=== PATIENT | female | born 1980 | race Caucasian/White ===

== ENCOUNTER 2018-04-27 15:45 | Outpatient (CLI) | payer OTHER ==
--- NOTE | 2018-04-27 17:25 | Non Stress Test Report ---
Non Stress Test Datetime Report Generated by CPN: 04/27/2018 17:24 INDICATION Indication for Study: Ordered by Provider Indication for Study (NST) Other: repeat from the office MONITORING Monitor Explained: Monitor Explained; Test Explained; Patient Verbalized Understanding Time on Monitor: 04/27/2018 16:08 Time off Monitor: 04/27/2018 16:50 NST Duration: 42 NST INTERVENTIONS NST Interventions: PO Hydration; Reposition Patient Physician Notified NST: Dr. Francois BABY A: [id number] BABY A Movement : Present Contraction Frequency : irreg FHR Baseline : 115 Accelerations : 15X15 Decelerations : None Variability : Moderate 6-25bpm NST Review: Meets Criteria for Reactive NST NST Review and Verified By : Geraldine De La Cruz RN NST Results: Reactive NST REPORT Report Trigger: Send Report
== END 2018-04-27 17:05 | disposition home or self-care (01) ==
LOC: LC 15:45
PROVIDERS: ATTEND Obstetrics & Gynecology
PROC: 4A1HXCZ Monitoring of Products of Conception, Cardiac Rate, External Approach (ICD-10-PCS; principal; 2018-04-27)
DX: O47.1 False labor at or after 37 completed weeks of gestation (principal); Z3A.37 37 weeks gestation of pregnancy
CPT/HCPCS: 59025

== ENCOUNTER 2018-05-07 06:31 | Inpatient (IN) | payer OTHER ==
[2018-05-07 07:38] LABS: ABSOLUTE LYMPHOCYTES (AUTO) 1.3 10^3/uL (0.5-4.7); ABSOLUTE MONOCYTES (AUTO) 0.4 10^3/uL (0.1-1.4); ABSOLUTE NEUT (AUTO) 4.9 10^3/uL (1.7-8.2); BASOPHILS % (AUTO) 0.2 % (0-2); EOSINOPHILS % (AUTO) 0.5 % (0-6); HEMATOCRIT 38.3 % (36.0-47.0); HEMOGLOBIN 13.3 g/dL (12.0-15.5); LYMPHOCYTES % (AUTO) 19.5 % (13-45); MEAN CORPUSCULAR HEMOGLOBIN 33.1 pg (27.0-33.4); MEAN CORPUSCULAR HGB CONC 34.8 g/dL (32.0-36.0); MEAN CORPUSCULAR VOLUME 95 fl (80-97); MONOCYTES % (AUTO) 5.8 % (3-13); PLATELET COUNT 103 10^3/uL (150-450); RED BLOOD COUNT 4.03 10^6/uL (3.72-5.28); RED CELL DISTRIBUTION WIDTH 12.7 % (11.5-14.0); TOTAL CELLS COUNTED % (AUTO) 100 %; WHITE BLOOD COUNT 6.6 10^3/uL (4.0-10.5)
[2018-05-07] MEDS ORDERED: OXYTOCIN/NORMAL SALINE 20 UNIT/1,000 ML RTUINJ ONE (07:44)
[2018-05-07] MEDS ORDERED: LIDOCAINE 1% INJ-PF (10 MG/ML) 30 ML SDV ONE (07:44)
[2018-05-07] MEDS ORDERED: MISOPROSTOL 0.2 MG TABLET ONE (07:44)
[2018-05-07 07:45] LABS: APPEARANCE,URINE CLOUDY; BILIRUBIN,URINE NEGATIVE (NEGATIVE); COLOR,URINE YELLOW; GLUCOSE, URINE NEGATIVE (NEGATIVE); KETONES,URINE NEGATIVE (NEGATIVE); LEUKOCYTE ESTERASE,URINE MODERATE (NEGATIVE); NITRITE,URINE NEGATIVE (NEGATIVE); PROTEIN,URINE NEGATIVE (NEGATIVE); URINE SPECIFIC GRAVITY 1.017; UROBILINOGEN,URINE NEGATIVE mg/dL (<2.0)
[2018-05-07] MEDS ORDERED: OXYTOCIN/NORMAL SALINE 20 UNIT/1,000 ML RTUINJ IV PRN ×4 (07:45→16:51)
[2018-05-07] MEDS: RINGERS SOLUTION,LACTATED 1,000 ML IV PRN ×2 (07:59→08:28)
[2018-05-07 08:05] LABS: URINE BENZODIAZEPINES SCREEN NEGATIVE
[2018-05-07 08:19] LABS: URINE AMPHETAMINES SCREEN NEGATIVE; URINE BARBITURATES SCREEN NEGATIVE; URINE COCAINE SCREEN NEGATIVE; URINE MARIJUANA (THC) SCREEN NEGATIVE; URINE METHADONE SCREEN NEGATIVE; URINE PHENCYCLIDINE SCREEN NEGATIVE
--- NOTE | 2018-05-07 08:53 | Admission Physical ---
Datetime Report Generated by CPN: 05/07/2018 08:53 CURRENT ADMISSION Hx Assessment: The History has been Reviewed and is Current Chief Complaint: Scheduled Induction of Labor Indication for Induction: Polyhydramnios Admit Impression : Term, Intrauterine ; Induction of Labor Admit Plan: Admit to Unit; Initiate Labor Induction Protocol ALLERGIES Medication Allergies: No Medication Allergies: No Known Allergies (04/27/2018) Latex: No Latex Allergies Food Allergies: none Environmental Allergies: none OBSTETRICAL HISTORY EDC: 05/14/2018 00:00 : 2 Para: 1 Term: 1 : 0 SAB: 0 IAB: 0 Ectopic: 0 Livin Cesareans: 0 VBACs: 0 Multiple Births: 0 Gestational Diabetes: No Rh Sensitization: No Incompetent Cervix: No ODALIS: No Infertility: No ART Treatment: No Uterine Anomaly: No IUGR: No Hx Previous C/S: No Macrosomia: No Hx Loss/Stillborn: No PIH: No Hx : No Placenta Previa/Abruption: No Depression/PP Depression: No PTL/PROM: No Post Hemorrhage: No Current Procedures: Ultrasound; NST Obstetrical History Comments: 2008 40+ 8 lb 9 oz G2 - current poly, AMA SEE RECORDS Alcohol: No Marijuana : No Cocaine: No Other Illicit Drugs: No Cigarettes: Never Smoker. 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 Surgery: No Heart Disease: No Hosp/Surgery: Yes Autoimmune Disorder: No Anesthetic Complications: No Kidney Disease: No Abnormal Pap Smear: No Neuro/Epilepsy: No Psychiatric Disorders: Yes Other Medical Diseases: No Hepatitis/Liver Disease: No Significant Family History: No Varicosities/Phlebitis: No Trauma/Violence : No Thyroid Dysfunction: No Medical History Comments: childbirth, anxiety, depression- on zoloft INFECTIOUS HISTORY Gonorrhea: No Genital Herpes: No Chlamydia: No Tuberculosis: No Syphilis: No Hepatitis: No HIV/AIDS Exposure: No Rash or Viral Illness: No HPV: No PHYSICAL EXAM General: Normal HEENT: Deferred Neurologic: Normal Thyroid: Normal Heart: Normal Lungs: Normal Breast: Deferred Back: Normal Abdomen: Normal Genitourinary Exam: Normal Extremities: Normal DTRs: Normal Pelvic Type: Adequate Physical Exam Comments: Pelvis proven 8-9 Poly @ 37 weeks AMA Anxiety, Zoloft 50, weaning since 03-26-18 A+ GBS Neg 3 hour WNL Vital Signs: Reviewed FETUS A EGA: 39.0 Monitoring: External US FHR- Baseline: 130 Variability: Moderate 6-25bpm Accelerations: 15X15 Presentation: Vertex Admit Comment: Admitted to LD for IOL , AMA, Poly, sono = vtx, Cat 1 strip, irreg uc's Plans for epidural Discussed POC PLANS FOR LABOR AND DELIVERY Labor and Delivery: None Pain Management: Epidural Feeding Preference: Formula Benefit of Breast Feed Discussed: Yes Circumcision: N/A INFORMED CONSENT Assignment: Gabrielle Francois MD Signature: with User ID: [email or web address] : with User ID: [email or web address]
[2018-05-07 10:58] LABS: ABSOLUTE LYMPHOCYTES (AUTO) 1.2 10^3/uL (0.5-4.7); ABSOLUTE MONOCYTES (AUTO) 0.5 10^3/uL (0.1-1.4); BASOPHILS % (AUTO) 0.2 % (0-2); EOSINOPHILS % (AUTO) 0.4 % (0-6); HEMATOCRIT 37.6 % (36.0-47.0); LYMPHOCYTES % (AUTO) 17.6 % (13-45); MEAN CORPUSCULAR HEMOGLOBIN 33.1 pg (27.0-33.4); MEAN CORPUSCULAR HGB CONC 34.6 g/dL (32.0-36.0); MEAN CORPUSCULAR VOLUME 96 fl (80-97); PLATELET COUNT 101 10^3/uL (150-450); RED BLOOD COUNT 3.93 10^6/uL (3.72-5.28); RED CELL DISTRIBUTION WIDTH 12.7 % (11.5-14.0); SEGMENTED NEUTROPHILS % (AUTO) 74.8 % (42-78); TOTAL CELLS COUNTED % (AUTO) 100 %; WHITE BLOOD COUNT 6.7 10^3/uL (4.0-10.5)
[2018-05-07] MEDS ORDERED: EPHEDRINE SULFATE INJ 50 MG/1 ML AMPULE ONE (11:28)
[2018-05-07] MEDS ORDERED: BUPIVACAINE HCL 0.5 % INJ/PF 30 ML SDV ONE (11:29)
[2018-05-07] MEDS ORDERED: FENTANYL/BUPIVACAINE/NS/PF 300 MCG/150 ML RTUINJ EPI ONE (11:29)
--- NOTE | 2018-05-07 13:47 | L&D Progress Notes ---
PROGRESS NOTES Datetime Report Generated by CPN: 05/07/2018 13:47 PROGRESS NOTE Impression: Reassuring Heart Rate Procedures: Artificial ROM; Scalp Electrode Plan: Continue Present Management; Induction Informed Consent Obtained: Vaginal Delivery Vital Signs : Reviewed; Within Normal Limits Comment: comfortable with epidural, VE 4/80/vtx/-1 to 0 AROM with scalp electrode, large amount of clear fluid, uc's q 2-3 min x 60 sec Anticipate MEMBRANES Membranes: Ruptured Amniotic Fluid Color: Clear FETUS A Monitoring: External US : 39.1 Presentation: Vertex SIGNATURE SIGNATURE: ,[id number];,[id number] SIGNATURE: [id number] SIGNATURE: [id number] Assignment: Gabrielle Francois MD Signature: with User ID: [email or web address] : with User ID: [email or web address]
[2018-05-07] MEDS ORDERED: ACETAMINOPHEN WITH CODEINE #3 TABLET PO PRN ×2 (16:51)
[2018-05-07] MEDS ORDERED: DIPH/PERTUSS(ACELL)/TETANUS VAC/PF 0.5 ML SYR (>=10YO) IM PRN (16:51)
[2018-05-07] MEDS ORDERED: DIBUCAINE 1% OINTMENT 28 GM TP PRN (16:51)
[2018-05-07] MEDS ORDERED: MEASLES,MUMPS&RUBELLA VACC/PF 0.5 ML VIAL SUBCUT PRN (16:51)
[2018-05-07] MEDS ORDERED: BENZOCAINE/MENTHOL AEROSOL SPRAY 56 ML TOP PRN (16:51)
[2018-05-07] MEDS ORDERED: PROMETHAZINE HCL INJ 25 MG/1 ML VIAL IV PRN (16:51)
[2018-05-07] MEDS ORDERED: PSEUDOEPHEDRINE HCL 30 MG TABLET PO PRN (16:51)
[2018-05-07] MEDS ORDERED: GLYCERIN/WITCH HAZEL LEAF 1 EACH MED..PAD TP PRN (16:51)
[2018-05-07] MEDS ORDERED: PROMETHAZINE HCL 25 MG TABLET PO PRN (16:51)
[2018-05-07] MEDS ORDERED: NA PHOS,M-B/NA PHOS,DI-BA (ADULT) 133 ML ENEMA PR PRN (16:51)
[2018-05-07] MEDS ORDERED: ACETAMINOPHEN 650 MG SUPP.RECT PR PRN (16:51)
[2018-05-07] MEDS ORDERED: MAGNESIUM HYDROXIDE SUSP 30 ML UDCUP PO PRN (16:51)
[2018-05-07] MEDS ORDERED: PROMETHAZINE HCL 25 MG SUPP.RECT PR PRN (16:51)
[2018-05-07] MEDS ORDERED: DIPHENHYDRAMINE HCL 25 MG CAPSULE PO PRN (16:51)
--- NOTE | 2018-05-07 19:30 | Warning Signs in Babies ---
VOD Warning Signs Datetime Report Generated by [facility]: 05/07/2018 19:30 VOD#608 -Warning Signs in Babies: Needs to be viewed. (04/27/2018 17:29:Merrai Nazario RN)
--- NOTE | 2018-05-07 19:30 | Delivery Summary ---
Del Sum A-C Datetime Report Generated by CPN: 05/07/2018 19:30 DELIVERY PERSONNEL DELIVERY PERSONNEL: [id number] Delivery Doctor:: Brenda Scott CNM Labor and Delivery Nurse:: Amanda Bernal RN Nursery Nurse:: Shilpa Toledo RN Nursery Nurse:: Ailin Lawson RN Laser Beam Cutter/BRANCH LENDING OFFICER: Jeannette Cervantes CST Additional Personnel: : Alejandra Buckner RN MATERNAL INFORMATION Delivery Anesthesia: Epidural Medications After Delivery: Pitocin Bolus-Please Comment Meds After Delivery Comment: Pitocin 20 units in 1L NS bolusing per order Maternal Complications: None Provider Comments: pt pushed, viable female form OC to FABY, loose nuchal cord x 1, easily reduced, placed on mothers abd, cord clamped and cut after 2 min, stimulated, coed cut by hsb. Spont del of grossly nl intact placenta, 3 VC, lac repaired without difficulty, baby to nursery for evaluation, FOB with baby, FFFM, Pitocin infusing, uterine massage LABOR SUMMARY EDC: 05/14/2018 00:00 No. Babies in Womb: 1 Attempted: No Labor Anesthesia: Epidural LABOR INFORMATION Reason for Induction: Polyhydramnios Onset of Labor: 05/07/2018 08:00 Complete Dilatation: 05/07/2018 15:57 Oxytocin: Induction Group B Beta Strep: negative Antibiotics # of Doses: 0 Steroids Given: None Reason Steroids Not Administered: Not Applicable MEMBRANES Membranes Rupture Method: Artificial Rupture of Membranes: 05/07/2018 13:13 Length of Rupture (hr): 3.27 Amniotic Fluid Color: Clear Amniotic Fluid Amount: Large Amniotic Fluid Odor: Normal STAGES OF LABOR Stage 1 hr: 7 Stage 1 min: 57 Stage 2 hr: 0 Stage 2 min: 32 Stage 3 hr: 0 Stage 3 min: 4 Total Time in Labor hr: 8 Total Time in Labor min: 33 VAGINAL DELIVERY Episiotomy: None Laceration #1: Vaginal Laceration Extension #1: Second Degree Laceration Repair: Yes Laceration Repair Note: 2-0 chromic repaired without difficulty Sponge Count Correct: N/A Sharps Count Correct: N/A CSECTION DELIVERY Primary Indication: N/A Secondary Indication: N/A CSection Incidence: N/A Labor: N/A Elective: N/A CSection Incision: N/A BABY A INFORMATION Delivery Date/Time: 05/07/2018 16:29 Method of Delivery: Vaginal Born in Route : No : N/A Forceps: N/A Vacuum Extraction: N/A Shoulder Dystocia : No PRESENTATION/POSITION BABY A Presentation: Cephalic Cephalic Presentation: Vertex Vertex Position: Left Occipital Anterior Breech Presentation: N/A PLACENTA INFORMATION BABY A Placenta Delivery Time : 05/07/2018 16:33 Placenta Method of Delivery: Spontaneous Placenta Status: Delivered SCORES BABY A Heart Rate 1 min: >100 bpm Resp Effort 1 min: Good Cry Reflex Irritability 1 min: Cough or Sneeze or Pulls Away Muscle Tone 1 min: Active Motion Color 1 min: Blue/Pale SCORE 1 MIN: 8 Heart Rate 5 min: >100 bpm Resp Effort 5 min: Good Cry Reflex Irritability 5 min: Cough or Sneeze or Pulls Away Muscle Tone 5 min: Active Motion Color 5 min: Blue/Pale SCORE 5 MIN: 8 INFORMATION BABY A Gestational Age at Delivery: 39.0 Gestational Status: Full Term- 39- 40.6 Weeks Outcome : Liveborn Infant Condition : Stable Sex: Female IDENTIFICATION BABY A Infant Verification Date/Time: 05/07/2018 17:06 ID Band Number: [id number] Mother's Name Verified: Yes Infant RN Verifying : C. Dolores, RN and E. [place] RN WEIGHT/LENGTH BABY A Infant Birthweight (gm): 3330 Weight (lb): 7 Weight (oz): 5 Length (in): 20.00 Length (cm): 50.80 CORD INFORMATION BABY A No. Cord Vessels: 3 Nuchal Cord : Around Neck x1, Loose Cord Blood Taken: Yes-For Storage (Mom's Blood type +) Suction: None ASSESSMENT BABY A Complications: Extended Bradycardia; Polyhydramnios Skin to Skin: No Desktop Support Technician/ALS Called : No Care By: Leann Michel RN Transferred To: NICU BABY B INFORMATION : N/A
[2018-05-07] MEDS ORDERED: IBUPROFEN 800 MG TABLET ONE (19:34)
[2018-05-07] MEDS: IBUPROFEN 800 MG TABLET PO SCH (21:00)
[2018-05-07] MEDS: FAMOTIDINE 20 MG TABLET PO SCH (22:11)
[2018-05-08] MEDS: IBUPROFEN 800 MG TABLET PO SCH (05:31)
[2018-05-08 06:57] LABS: HEMOGLOBIN 12.3 g/dL (12.0-15.5); MEAN CORPUSCULAR HEMOGLOBIN 33.5 pg (27.0-33.4); MEAN CORPUSCULAR HGB CONC 35.1 g/dL (32.0-36.0); MEAN CORPUSCULAR VOLUME 95 fl (80-97); RED BLOOD COUNT 3.66 10^6/uL (3.72-5.28); RED CELL DISTRIBUTION WIDTH 12.8 % (11.5-14.0); WHITE BLOOD COUNT 11.4 10^3/uL (4.0-10.5)
[2018-05-08 07:42] LABS: PLATELET COUNT 91 10^3/uL (150-450)
[2018-05-08] MEDS: DOCUSATE SODIUM 100 MG CAPSULE PO SCH ×3 (10:06→18:10)
[2018-05-08] MEDS: FERROUS SULFATE 325 MG TABLET PO SCH ×3 (10:06→18:10)
[2018-05-08] MEDS: SENNOSIDES/DOCUSATE 8.6-50 MG 1 EACH TABLET PO SCH (10:10)
[2018-05-08] MEDS: PRENATAL VITAMIN W DHA CAPSULE PO SCH (10:10)
[2018-05-08] MEDS: FAMOTIDINE 20 MG TABLET PO SCH ×2 (10:11→22:41)
[2018-05-08] MEDS: ACETAMINOPHEN 325 MG TABLET PO PRN (13:40)
--- NOTE | 2018-05-08 13:51 | PDOC PROGRESS REPORT ---
Subjective-OB Progress Note for:: 05/08/18 Subjective: reports bleeding showing, pain controlled with current meds, denies needs Physical Exam (OB) Vital Signs: Temp Pulse Resp BP Pulse Ox 97.5 F 87 16 100/58 L 100 05/08/18 07:39 05/08/18 07:39 05/08/18 07:39 05/08/18 07:39 05/08/18 07:39 Intake & Output 05/07/18 05/08/18 05/09/18 06:59 06:59 06:59 Intake Total 2360 Balance 2360 Weight 88.1 kg - Abdomen Description: Soft, Flat Hernia Present: No Fundal Description: Firm, Midline Fundal Height: u/u - u/2 - Abdominal Distension: No distension Tenderness: Nontender - Extremities Lower extremities: Marlyn's sign - neg Calf: Normal, Nontender Objective-Diagnostic Laboratory: 05/08/18 06:34 05/08/18 06:34 WBC 11.4 H RBC 3.66 L Hgb 12.3 Hct 35.0 L MCV 95 MCH 33.5 H MCHC 35.1 RDW 12.8 Plt Count 91 L Assessment and Plan(PN) - Assessment and Plan (1) Normal vaginal delivery Is this a current diagnosis for this admission?: Yes (2) Thrombocytopenia Is this a current diagnosis for this admission?: Yes - Time Spent with Patient Time with patient: Less than 15 minutes Medications reviewed and adjusted accordingly: Yes - Disposition Anticipated Discharge: Home Within: within 24 hours
[2018-05-09 08:06] VITALS: BP 118/75
--- NOTE | 2018-05-09 10:51 | PDOC DISCHARGE SUMMARY ---
Final Diagnosis Discharge Date: 05/09/18 - PP#2, doing well, hx of thrombocytopenia this pergnancy, no complaints, Bottle feeding, A+, rubella immune - Final Diagnosis (1) Normal course Is this a current diagnosis for this admission?: Yes (2) Normal vaginal delivery Is this a current diagnosis for this admission?: Yes (3) Thrombocytopenia Is this a current diagnosis for this admission?: Yes Discharge Data - Discharge Medication Home Medications: [id number]/Iron/Folic/Dha [ Formula-Dha Softgel] 1 cap PO DAILY 08/13 Sertraline HCl [Zoloft 50 mg Tablet] 50 mg PO DAILY 04/27/18 Acetaminophen [Tylenol 325 mg Tablet] 975 mg PO Q6HP PRN tablet 05/09/18 Reason(s) for Admission: Onset of Labor Procedures: Ultrasound Intrapartum Procedure(s): Spontaneous Vaginal Delivery Complication(s): Laceration-Perineal Laceration-Degree: 2nd - Diagnosis Test Laboratory: Temp Pulse Resp BP Pulse Ox 97.8 F 69 16 118/75 99 05/09/18 07:36 05/09/18 07:36 05/09/18 07:36 05/09/18 07:36 05/09/18 07:36 05/07/18 05/07/18 05/07/18 06:43 07:00 10:44 RBC 4.03 3.93 Hgb 13.3 13.0 Hct 38.3 37.6 Urine Opiates Screen NEGATIVE 05/08/18 06:34 RBC 3.66 L Hgb 12.3 Hct 35.0 L Urine Opiates Screen - Discharge information/Instructions Discharge Activity: Activity As Tolerated, No Lifting Over 10 Pounds, Pelvic Rest Discharge Diet: As Tolerated, Regular Disposition: HOME, SELF-CARE Follow up with: [facility] in: 2, Weeks - check [place] level
[2018-05-09] MEDS: SENNOSIDES/DOCUSATE 8.6-50 MG 1 EACH TABLET PO SCH (11:07)
[2018-05-09] MEDS: FERROUS SULFATE 325 MG TABLET PO SCH (11:07)
[2018-05-09] MEDS: FAMOTIDINE 20 MG TABLET PO SCH (11:07)
[2018-05-09] MEDS: DOCUSATE SODIUM 100 MG CAPSULE PO SCH (11:07)
[2018-05-09] MEDS: PRENATAL VITAMIN W DHA CAPSULE PO SCH (11:07)
[2018-05-09] MEDS: ACETAMINOPHEN 325 MG TABLET PO PRN (12:58)
== END 2018-05-09 14:50 | disposition home or self-care (01) | DRG 807 ==
LOC: LR 06:31 → 2S 20:08
PROVIDERS: ADMIT Student in an Organized Health Care Education/Training Program; ATTEND Student in an Organized Health Care Education/Training Program
PROC: 10907ZC Drainage of Amniotic Fluid, Therapeutic from Products of Conception, Via Natural or Artificial Opening (ICD-10-PCS; principal; 2018-05-07)
PROC: 10E0XZZ Delivery of Products of Conception, External Approach (ICD-10-PCS; 2018-05-07)
PROC: 0KQM0ZZ Repair Perineum Muscle, Open Approach (ICD-10-PCS; 2018-05-07)
DX: O70.1 Second degree perineal laceration during delivery (principal); Z37.0 Single live birth; Z3A.39 39 weeks gestation of pregnancy; O69.81X0 Labor and delivery complicated by cord around neck, without compression, not applicable or unspecified; O40.3XX0 Polyhydramnios, third trimester, not applicable or unspecified; O99.344 Other mental disorders complicating childbirth; F41.8 Other specified anxiety disorders
CPT/HCPCS: 36415; 80307; 81005; 85025; 85027; 86592; 86850; 86900; 86901; 94760; J2590; J3010; J3490

== ENCOUNTER → 2018-11-14 | Outpatient (CLI) | payer OTHER ==
[2018-11-14 16:53] LABS: A TYPE INFLUENZA AG NEGATIVE (NEGATIVE); B INFLUENZA AG NEGATIVE (NEGATIVE)
== END ==
LOC: OD 15:54
PROVIDERS: ATTEND Nurse Practitioner Family
DX: R11.0 Nausea (principal); R68.83 Chills (without fever)
CPT/HCPCS: 87804